=== PATIENT | female | born 1960 | race Caucasian/White ===

== ENCOUNTER → 2017-02-16 | Day surgery (SDC) | payer OTHER ==
[~2017-02-16] VITALS: Ht 175.3 cm; Wt 145.1 kg
[~2017-02-16] MED LIST: ASPI81TA85 PO; BUPIVACAINE HCL 0.25% 30 ML VIAL As Ordered ONE; CYMB1CAP4 PO; GLYCOPYRROLATE INJ 0.2 MG/ML 2 ML VIAL As Ordered ONE; GRAL600T PO; HYDR-3716 PO; LEVO175T2 PO; LIDOCAINE 2% INJ 100 MG/5 ML SDV (FOR ANES.) As Ordered ONE; LISI20TA3 PO; LR 1,000 ML IV SCH; METF500T PO; METO25TA74 PO; METOCLOPRAMIDE INJ 10MG/2ML VIAL (J2765) As Ordered ONE; MIDAZOLAM INJ 2 MG/2 ML VIAL (J2250) As Ordered ONE; MORPHINE 10 MG/ML 1ML VIAL As Ordered ONE; MORPHINE 2 MG/ML 1ML SYRINGE As Ordered ONE; NEOSTIGMINE 1MG/ML 5 ML SYRINGE (J2710) As Ordered ONE; NORCO, ANEXSIA 5/325MG TABLET (HYDROcodone/ACETAMINOPHEN) PO PRN; ONDANSETRON 4MG/2ML VIAL (J2405) As Ordered ONE; ONDANSETRON 4MG/2ML VIAL (J2405) IV PRN; PROPOFOL 200 MG/20 ML VIAL As Ordered ONE; ROCURONIUM BROMIDE 50 MG/5 ML VIAL As Ordered ONE; TIZA4CAP3 PO; ZOCO20TA PO; fentaNYL 100 MCG/2 ML INJECTION (J3010) As Ordered ONE; fentaNYL 250 MCG/5 ML INJECTION (J3010) As Ordered ONE
[2017-02-16] MEDS: MORPHINE 2 MG/ML 1ML SYRINGE IV PRN ×7 (13:44→17:30)
[2017-02-16] MEDS: fentaNYL 100 MCG/2 ML INJECTION (J3010) IV PRN ×4 (16:20→16:35)
--- NOTE | 2017-02-16 17:43 | RO ---
DATE OF PROCEDURE: 02/16/2017 PREOPERATIVE DIAGNOSIS: Symptomatic gallstones. POSTOPERATIVE DIAGNOSIS: Symptomatic gallstones. OPERATIVE PROCEDURE: Laparoscopic cholecystectomy. SURGEON: Jeremy Chapa MD LIFE CARE PLANNER: BEV Ruiz ANESTHESIA: General. INDICATIONS FOR PROCEDURE: The patient is a 56-year-old woman with morbid obesity, status post a gastric bypass several years ago who is now for a laparoscopic cholecystectomy for symptomatic cholelithiasis. OPERATIVE PROCEDURE; The patient was placed on the operating table and placed under general endotracheal anesthesia. The patient's abdomen was prepped and draped in a sterile fashion. The patient remains morbidly obese. 0.25% Marcaine was infiltrated at each of the trocar sites. Staci Ceballos, the registered nurse first assistant was instrumental in providing adequate retraction given the marked thickness of the abdominal wall and in managing the camera during the procedure. Initially, an approximately 3-4 cm midline incision was made in the epigastrium about 10-12 cm above the umbilicus. This was deepened to the fascia. The patient's abdominal wall was perhaps 6-8 cm thick. When the fascia could be exposed, a longitudinal incision was made in the fascia. I attempted to enter the peritoneum bluntly by finger dissection, but the preperitoneal fat layer was quite thick as well. It was necessary to lift this layer with clamps and then to create an opening with a Araceli clamp. The standard Silviano cannula was not long enough to reach through the opening in the peritoneum so an extra long 12 mm trocar was placed through the created opening and the abdomen was inflated with carbon dioxide. The skin was closed around the trocar using perforating towel clips. Once the abdomen had been adequately inflated the laparoscope was placed. The liver was noted and appeared largely normal although the margins were somewhat blunted. There was abundant fibrofatty tissue in the upper abdomen. Visualized portions of the small and large bowel were normal. A 5 mm trocar was placed in the lateral right upper quadrant. A grasper was used to depress the fatty tissue inferior to the liver and the gallbladder was exposed. The gallbladder appeared somewhat enlarged and moderately thick-walled, but not acutely inflamed. The gallbladder was grasped and elevated. The second 5 mm trocar was placed in the right upper quadrant and a third trocar was placed in the right upper quadrant, higher up in the epigastrium just to the right of the falciform ligament. The patient was tilted to a reverse Trendelenburg position. The gallbladder was grasped and elevated. The neck of the gallbladder was surprisingly well exposed. The peritoneum around the neck of the gallbladder was divided using the hook cautery. With further dissection the cystic duct and the cholecystic artery were both clearly identified and dissected from surrounding structures. Both structures were then doubly clipped with hemoclips and divided with scissors. The gallbladder was then dissected free from the gallbladder bed using cautery dissection. A small puncture of the gallbladder occurred at the edge of the gallbladder bed and a minimal amount of bile was released into the subhepatic space. Once the gallbladder was completely freed, it was placed in an Endopouch. The right upper quadrant was then irrigated with saline until clear. Inspection of the gallbladder bed and the area of the of the hemoclips showed no bleeding and no bile leak. The patient was returned to a flat position. The abdomen was deflated and the trocars were all removed. The gallbladder was recovered through the supraumbilical site. There were at least two large irregular stones palpable within the gallbladder, perhaps 12 mm in diameter. The gallbladder was sent for permanent pathology. The fascia along the midline was closed with interrupted simple sutures of #0 Vicryl. The skin incisions were all closed with buried Vicryl and Steri-Strips. Light dressings were applied. The patient tolerated the procedure well without apparent complication. She was awakened in the operating room, extubated and moved to the recovery room in stable condition.
[2017-02-16 18:30] VITALS: BP 130/61
== END ==
LOC: M SDC 10:59
PROVIDERS: ATTEND Surgery
DX: K80.10 Calculus of gallbladder with chronic cholecystitis without obstruction (principal); E66.01 Morbid (severe) obesity due to excess calories; Z98.84 Bariatric surgery status; I10 Essential (primary) hypertension; E11.9 Type 2 diabetes mellitus without complications; E78.00 Pure hypercholesterolemia, unspecified; E03.9 Hypothyroidism, unspecified; I25.10 Atherosclerotic heart disease of native coronary artery without angina pectoris; Z95.5 Presence of coronary angioplasty implant and graft; Z79.899 Other long term (current) drug therapy; Z79.84 Long term (current) use of oral hypoglycemic drugs; Z79.82 Long term (current) use of aspirin; Z88.8 Allergy status to other drugs, medicaments and biological substances; Z87.891 Personal history of nicotine dependence
CPT/HCPCS: 47562; 88304; J2250; J2405; J2710; J2765; J3010